=== PATIENT | male | born 1955 | race Caucasian/White ===

== ENCOUNTER → 2018-06-18 | Outpatient (CLI) | payer BC ==
[~2018-06-18] MED LIST: ABILIFY; ESCT10T PO; PNT40TEC PO; TELM80TA3 PO; TERA5CAP10 PO; TERAZOSIN; TEST90SO TD
--- NOTE | 2018-06-18 12:32 | Diagnostic Imaging Report ---
INDICATION: Left hydrocele and epididymitis. FINDINGS: The right testicle measures 5.0 x 2.4 x 3.0 cm and the left testicle measures 4.7 x 2.6 x 3.2 cm. The testes show homogeneous echotexture. No discrete testicular mass is seen. There is blood flow to both testes. No hydroceles are seen. There appears to be a cyst in the epididymal head on the right measuring approximately 17 mm x 8 mm x 12 mm. Nonspecific regions of hypoechogenicity are noted in an extratesticular location bilaterally, lateral to the epididymides, exact etiology is indeterminate. No internal blood flow is seen. These could represent thrombosed varicoceles. IMPRESSION: 1. No evidence of testicular mass or vascular compromise. 2. Right epididymal cyst. 3. Nonvascular hypoechogenicities adjacent to the epididymides bilaterally, perhaps thrombosed varicoceles. Dictated by: Dictated on workstation # [id number]
== END ==
LOC: RAD 08:19
PROVIDERS: ATTEND Urology
DX: N50.3 Cyst of epididymis (principal)
CPT/HCPCS: 76870

== ENCOUNTER → 2021-10-04 | Outpatient (CLI) | payer BC, MEDICARE ==
--- NOTE | 2021-10-04 17:39 | Diagnostic Imaging Report ---
INDICATION: Fall. Right hip pain and numbness. COMPARISON: None. FINDINGS: Two views of the right hip were obtained and show no fractures, dislocations, or other acute bony abnormalities. Mild osteoarthritic changes are noted. Otherwise, joint spaces are maintained. The soft tissues appear unremarkable. No radiopaque foreign bodies are identified. IMPRESSION: No acute fracture or dislocation of the right hip. Dictated by: Dictated on workstation # [id number]
--- NOTE | 2021-10-04 17:41 | Diagnostic Imaging Report ---
INDICATION: Knee pain status post fall. COMPARISON: None. FINDINGS: Multiple radiographic views of the right knee were obtained. There is no evidence of acute fracture or dislocation. Osseous structures are intact. Joint spaces are maintained. Note is made of probable calcified intra-articular loose body within the posterior margins of the lateral tibiofemoral joint space. It measures approximately 9 mm. No other unexpected radiopaque foreign bodies are seen. There is no large joint effusion. IMPRESSION: 1. No acute fracture or dislocation of the right knee. 2. Probable calcified intra-articular loose body. Dictated by: Dictated on workstation # [id number]
== END ==
LOC: RAD 15:27
PROVIDERS: ATTEND Family Medicine
DX: M25.561 Pain in right knee (principal); M25.551 Pain in right hip; R20.0 Anesthesia of skin; W19.XXXA Unspecified fall, initial encounter
CPT/HCPCS: 73502; 73562

== ENCOUNTER → 2021-10-11 | Outpatient (CLI) | payer MEDICARE | LOC: CARD 11:30 | PROVIDERS: ATTEND Family Medicine | DX: R01.1 Cardiac murmur, unspecified (principal); I35.0 Nonrheumatic aortic (valve) stenosis; I51.7 Cardiomegaly | CPT/HCPCS: 93306 ==

== ENCOUNTER → 2022-09-15 | Outpatient (CLI) | payer MEDICARE ==
--- NOTE | 2022-09-15 15:19 | Diagnostic Imaging Report ---
PROCEDURE: US Scrotum. TECHNIQUE: Multiple real-time grayscale images were obtained over the scrotum in various projections, bilaterally. INDICATION: Scrotal pain with hydrocele and varicocele. FINDINGS: Right testicle measures 4.5 x 2.6 x 2.6 cm and the left testicle measures 4.5 x 2.4 x 3.0 cm. Both testes demonstrate homogeneous echotexture. No testicular mass is identified. There is blood flow bilaterally. Left epididymis is unremarkable. Right epididymis does contain a cyst measuring approximately 14 mm x 13 mm in the head of the epididymis. There is a small left hydrocele and varicocele. No right-sided hydrocele or varicocele is identified. IMPRESSION: 1. No evidence of testicular mass or vascular compromise. 2. Right epididymal head cyst. 3. Small left hydrocele and varicocele. Dictated by: Dictated on workstation # [id number]
== END ==
LOC: RAD 13:21
PROVIDERS: ATTEND Urology
DX: N43.3 Hydrocele, unspecified (principal); I86.1 Scrotal varices; N50.3 Cyst of epididymis
CPT/HCPCS: 76870